=== PATIENT | male | born 1950 | race Caucasian/White ===

== ENCOUNTER → 2021-04-22 | Outpatient (CLI) | payer OTHER ==
[~2021-04-22] MED LIST: ADULT LOW DOSE81 MG PO; AMLODIPINE BESYL5 MG PO; COENZYME Q10 21 EACH PO; OMEGA-31000 MG PO; PRINIVIL40 MG PO; TOPROL XL50 MG PO; VYTORIN 10-801 EACH PO
== END ==
LOC: SJCVCIMAG 09:40
PROVIDERS: ATTEND Internal Medicine
DX: I34.0 Nonrheumatic mitral (valve) insufficiency (principal); I25.10 Atherosclerotic heart disease of native coronary artery without angina pectoris; R06.09 Other forms of dyspnea; I10 Essential (primary) hypertension; E78.5 Hyperlipidemia, unspecified; R00.0 Tachycardia, unspecified; R53.83 Other fatigue